=== PATIENT | male | born 1985 | race African-American/Black ===

== ENCOUNTER 2022-03-22 00:02 | Emergency (ER) | payer OTHER ==
[2022-03-22] MEDS ORDERED: Acetaminophen 325 MG TAB ONE (02:35)
[2022-03-22 03:51] LABS: SARS-CoV-2 NAA Rapid Test Not Detected (NotDetected)
== END 2022-03-22 04:30 | disposition home or self-care (01) ==
LOC: CSHERS 00:02
DX: J06.9 Acute upper respiratory infection, unspecified (principal); F17.210 Nicotine dependence, cigarettes, uncomplicated; Z20.822 Contact with and (suspected) exposure to COVID-19
CPT/HCPCS: 87081; 87430; 99283